=== PATIENT | female | born 1990 | race Caucasian/White ===

== ENCOUNTER 2018-02-06 17:09 | Emergency (ER) | payer MEDICAID, OTHER ==
[~2018-02-06] VITALS: Ht 162.6 cm; Wt 63.5 kg
[2018-02-06 17:17] VITALS: BP_SYST 120
[2018-02-06] MEDS ORDERED: LORazepam 2 MG/ML VIAL (FOR ER USE) IVP ONE ×2 (17:30→20:00)
[2018-02-06] MEDS ORDERED: NACL 0.9% 1,000 ML IV ONE (17:30)
[2018-02-06 17:54] LABS: BASOPHILS # (AUTO) 0.1 K/uL (0.0-0.2); BASOPHILS % (AUTO) 0.5 % (0.0-2.0); EOSINOPHILS % (AUTO) 0.1 % (0.0-4.0); HEMATOCRIT 43.7 % (36-48); HEMOGLOBIN 13.6 g/dL (12.0-16.0); LYMPHOCYTES # (AUTO) 0.6 K/uL (1.0-5.5); LYMPHOCYTES % (AUTO) 5.4 % (20.5-51.5); MEAN CORPUSCULAR HEMOGLOBIN 26 pg (27-31); MEAN CORPUSCULAR HGB CONC 31 % (32-36); MEAN CORPUSCULAR VOLUME 85 fL (79.0-98.0); MONOCYTES # (AUTO) 0.1 K/uL (0.0-1.0); MONOCYTES % (AUTO) 0.7 % (1.7-9.3); NEUTROPHILS # (AUTO) 9.7 K/uL (1.8-7.7); NEUTROPHILS % (AUTO) 93.3 % (40.0-70.0); PLATELET COUNT (AUTO) 290 K/uL (130-430); RED BLOOD CELL COUNT(AUTO) 5.14 MIL/uL (4.2-6.2); RED CELL DISTRIBUTION WIDTH 15.3 % (9.0-15.0); WHITE BLOOD COUNT (AUTO) 10.5 K/uL (4.8-10.8)
[2018-02-06 18:13] LABS: CALCIUM 9.8 mg/dL (8.4-11.0); CREATININE 0.64 mg/dL (0.55-1.30); POTASSIUM 4.5 mmol/L (3.5-5.1)
[2018-02-06 18:17] LABS: ALBUMIN 4.2 g/dL (3.4-4.8); TOTAL BILIRUBIN 0.6 mg/dL (0.0-1.0)
[2018-02-06] MEDS ORDERED: IBUPROFEN 800 MG TABLET PO ONE (19:15)
[2018-02-06 19:23] LABS: BILIRUBIN,URINE NEGATIVE (NEGATIVE); BLOOD, URINE NEGATIVE (NEGATIVE); CLARITY/URINE CLEAR (CLEAR); COLOR,URINE YELLOW (YELLOW); GLUCOSE,URINE TRACE (NEGATIVE); KETONES,URINE 1+ (NEGATIVE); LEUKOCYTE ESTERASE ,URINE NEGATIVE (NEGATIVE); NITRITE, URINE NEGATIVE (NEGATIVE); PH,URINE 5.5 (5.0-8.0); PROTEIN URINE NEGATIVE (NEGATIVE); UROBILINOGEN,URINE 0.2 (0.2-1.0)
[2018-02-06 22:25] VITALS: BP_SYST 118
== END 2018-02-06 22:25 | disposition home or self-care (01) ==
LOC: SED 17:09
DX: O99.341 Other mental disorders complicating pregnancy, first trimester (principal); O34.81 Maternal care for other abnormalities of pelvic organs, first trimester; F41.9 Anxiety disorder, unspecified; Z3A.01 Less than 8 weeks gestation of pregnancy
CPT/HCPCS: 36415; 76801; 76817; 80053; 81003; 83690; 84702; 85025; 86901; 96361; 96374; 96376; 99285; J2060; J7030

== ENCOUNTER 2018-03-10 11:41 | Emergency (ER) | payer MEDICAID ==
[~2018-03-10] VITALS: Ht 162.6 cm; Wt 61.2 kg
[2018-03-10 11:59] VITALS: BP_SYST 125
[2018-03-10] MEDS ORDERED: ONDANSETRON HCL 4 MG/2 ML VIAL IVP ONE (12:30)
[2018-03-10] MEDS ORDERED: fentaNYL CITRATE/PF 100 MCG/2 ML AMP IVP ONE (12:30)
[2018-03-10] MEDS ORDERED: NACL 0.9% 1,000 ML IV ONE (12:30)
[2018-03-10 12:44] LABS: BASOPHILS % (AUTO) 0.1 % (0.0-2.0); HEMATOCRIT 40.8 % (36-48); HEMOGLOBIN 13.3 g/dL (12.0-16.0); LYMPHOCYTES # (AUTO) 0.7 K/uL (1.0-5.5); LYMPHOCYTES % (AUTO) 6.1 % (20.5-51.5); MEAN CORPUSCULAR HEMOGLOBIN 28 pg (27-31); MEAN CORPUSCULAR HGB CONC 33 % (32-36); MEAN CORPUSCULAR VOLUME 85 fL (79.0-98.0); MONOCYTES # (AUTO) 0.2 K/uL (0.0-1.0); MONOCYTES % (AUTO) 1.9 % (1.7-9.3); NEUTROPHILS # (AUTO) 11.4 K/uL (1.8-7.7); NEUTROPHILS % (AUTO) 91.9 % (40.0-70.0); PLATELET COUNT (AUTO) 238 K/uL (130-430); RED BLOOD CELL COUNT(AUTO) 4.81 MIL/uL (4.2-6.2); RED CELL DISTRIBUTION WIDTH 12.1 % (9.0-15.0); WHITE BLOOD COUNT (AUTO) 12.3 K/uL (4.8-10.8)
[2018-03-10 13:01] LABS: CALCIUM 8.7 mg/dL (8.4-11.0); CREATININE 0.67 mg/dL (0.55-1.30); POTASSIUM 3.5 mmol/L (3.5-5.1)
[2018-03-10] MEDS ORDERED: PROCHLORPERAZINE EDISYLATE 10 MG/2 ML VIAL IVP ONE (14:00)
[2018-03-10 14:20] VITALS: BP_SYST 125
[2018-03-10 15:21] LABS: BARBITURATE, URINE NEGATIVE (NEG <=200)
[2018-03-10 15:22] LABS: BENZODIAZEPINE, URINE POSITIVE (NEG <=150); CANNABINOID, URINE POSITIVE (NEG <=50); COCAINE, URINE NEGATIVE (NEG <=150); METHAMPHETAMINES SCREEN,URINE NEGATIVE (NEG <=500); OPIATE, URINE POSITIVE (NEG <=100); PHENCYCLIDINE SCREEN,URINE NEGATIVE (NEG <=25); UR TRICYCLIC ANTIDEPRESSANTS NEGATIVE (NEG <=300); URINE AMPHETAMINE NEGATIVE (NEG <=500); URINE METHADONE NEGATIVE (NEG <=200); URINE OXYCODONE SCREEN NEGATIVE (NEG <=100); URINE PROPOXYPHENE SCREEN NEGATIVE (NEG <=300)
== END 2018-03-10 14:20 | disposition home or self-care (01) ==
LOC: SED 11:41
DX: O21.0 Mild hyperemesis gravidarum (principal); R03.0 Elevated blood-pressure reading, without diagnosis of hypertension; F41.9 Anxiety disorder, unspecified; Z90.49 Acquired absence of other specified parts of digestive tract; Z90.89 Acquired absence of other organs; Z3A.01 Less than 8 weeks gestation of pregnancy
CPT/HCPCS: 36415; 80048; 80307; 81025; 85025; 96361; 96374; 96375; 99283; J0780; J2405; J3010; J7030

== ENCOUNTER 2018-09-29 14:35 | Emergency (ER) | payer MEDICAID ==
[~2018-09-29] VITALS: Ht 162.6 cm; Wt 54.4 kg
[2018-09-29 14:40] VITALS: BP_SYST 112
--- NOTE | 2018-09-29 14:46 | NUR ---
Patient to ER bed 03 to gown for evaluation. Side rails up.
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
--- NOTE | 2018-09-29 15:05 | NUR ---
ER at bedside examining patient.
[2018-09-29] MEDS ORDERED: LIDOCAINE/EPI 2% 1:100000 20 ML VIAL INJ ONE (15:15)
--- NOTE | 2018-09-29 15:35 | NUR ---
REESE Rachel at bedside suturing patient.
[2018-09-29] MEDS ORDERED: DIPH-TET-PERTUS Vaccine 0.5 ML VIAL (ADACEL) I.M. ONE (16:00)
[2018-09-29] MEDS ORDERED: ACETAMINOPHEN 500 MG TABLET PO ONE (16:30)
[2018-09-29 16:49] VITALS: BP_SYST 112
--- NOTE | 2018-09-29 16:52 | NUR ---
Patient given written and verbal discharge instructions and verbalizes understanding. ER MD discussed with patient the results and treatment provided. Patient in stable condition. ID arm band removed. No Rx given. Patient educated on pain management and to follow up with PMD. Pain Scale 3/10 tolerable for patient. Opportunity for questions provided and answered. Medication side effect fact sheet provided.
== END 2018-09-29 16:45 | disposition home or self-care (01) ==
LOC: SED 14:35
DX: S01.81XA Laceration without foreign body of other part of head, initial encounter (principal); F41.9 Anxiety disorder, unspecified; W01.198A Fall on same level from slipping, tripping and stumbling with subsequent striking against other object, initial encounter; Y93.89 Activity, other specified; Y92.89 Other specified places as the place of occurrence of the external cause; Y99.8 Other external cause status
CPT/HCPCS: 90715; 99283

== ENCOUNTER 2019-04-21 22:00 | Emergency (ER) | payer MEDICAID ==
[~2019-04-21] VITALS: Ht 162.6 cm; Wt 56.7 kg
[2019-04-21 22:05] VITALS: BP_SYST 104
--- NOTE | 2019-04-21 22:05 | NUR ---
Patient triaged and placed in waiting room. VSS and patient appears in no acute distress at this time. Accompanied by BOY FRIEND, awaiting available bed, and MD notified of need for MSE.
--- NOTE | 2019-04-22 01:30 | NUR ---
Patient to ER bed 6 to gown for evaluation. Side rails up. Report given to Eve JENNINGS.
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
--- NOTE | 2019-04-22 01:50 | NUR ---
ER Dr. Brito at bedside examining patient.
[2019-04-22] MEDS ORDERED: CYCLOBENZAPRINE HCL 10 MG TABLET (FLEXERIL) PO ONE ×2 (02:30→04:15)
[2019-04-22] MEDS ORDERED: KETOROLAC TROMETHAMINE 60 MG/2 ML VIAL IM ONE (02:30)
--- NOTE | 2019-04-22 03:00 | NUR ---
Pt medicated per MD orders. Pt tolerated well. Will continue to monitor.
--- NOTE | 2019-04-22 04:10 | NUR ---
ER Dr. Brito at bedside explaining results to patient.
[2019-04-22] MEDS ORDERED: HYDROcodone/ACETAMIN 5-325 MG TAB (NORCO/ VICODIN) PO ONE (04:15)
[2019-04-22 04:30] VITALS: BP_SYST 108
--- NOTE | 2019-04-22 04:30 | NUR ---
Patient given written and verbal discharge instructions and verbalizes understanding. ER MD BRITO discussed with patient the results and treatment provided. Patient in stable condition. ID arm band removed. Rx of NAPROSYN AND FLEXERIL given. Patient educated on pain management and to follow up with PMD. Pain Scale 5/10. MD Brito aware of pain scale. Per MD, pt boyfriend in bed 3 as patient and will monitor pain. Opportunity for questions provided and answered. Medication side effect fact sheet provided.
--- NOTE | 2019-04-22 04:30 | NUR ---
Note undone in EDM - 04/22/19 at 0823 by KESHIA Patient given written and verbal discharge instructions and verbalizes understanding. ER MD Brito discussed with patient the results and treatment provided. Patient in stable condition. ID arm band removed. Rx of naprosyn and flexeril given. Patient educated on pain management and to follow up with PMD. Pain Scale /10. Opportunity for questions provided and answered. Medication side effect fact sheet provided.
== END 2019-04-22 04:30 | disposition home or self-care (01) ==
LOC: SED 22:00
DX: R07.89 Other chest pain (principal); G89.29 Other chronic pain; M54.5 Low back pain
CPT/HCPCS: 71045; 71100; 81025; 96372; 99283; J1885; 93005

== ENCOUNTER 2019-05-16 14:07 | Emergency (ER) | payer MEDICAID ==
[~2019-05-16] VITALS: Ht 162.6 cm; Wt 57.6 kg
[2019-05-16 14:13] VITALS: BP_SYST 124
--- NOTE | 2019-05-16 14:20 | NUR ---
Patient to ER bed 8 to gown for evaluation. Side rails up. Report given to MICHAELA Thomas.
--- NOTE | 2019-05-16 14:22 | NUR ---
Patient arrived in the ED c/o lower back pain that radiates down to the left leg that started 2 days ago. Denied any chest pain or shortness of breath. Denied any fevers, nausea, vomiting, or chills. Patient is alert and oriented x4, respirations even and unlabored, speaking in full sentences, ambulating with a steady gait. VSS, pain level 10/10. Informed of wait time. Instructed to notify ED staff for any changes in condition or worsening of symptoms. Patient verbalized understanding.
--- NOTE | 2019-05-16 14:26 | NUR ---
Patient ambulated to the bathroom with a steady gait. Urine specimen collected. Preg test done.
--- NOTE | 2019-05-16 14:29 | NUR ---
ER Dr. Jose at bedside examining patient.
[2019-05-16] MEDS ORDERED: fentaNYL CITRATE/PF 100 MCG/2 ML AMP IM ONE (14:45)
--- NOTE | 2019-05-16 14:56 | NUR ---
Administered Fentanyl IM as ordered by Dr. Jose. Patient tolerated the medication well. See eMAR for details.
[2019-05-16] MEDS ORDERED: HYDROcodone/ACETAMIN 5-325 MG TAB (NORCO/ VICODIN) PO ONE (16:00)
--- NOTE | 2019-05-16 16:05 | NUR ---
Administered Nakina 5/325 PO as ordered by Dr. Gann. Patient tolerated the medication well. See eMAR for details.
[2019-05-16 16:12] VITALS: BP_SYST 124
--- NOTE | 2019-05-16 16:15 | NUR ---
Patient given written and verbal discharge instructions and verbalizes understanding. ER MD discussed with patient the results and treatment provided. Patient in stable condition. ID arm band removed. Rx of Rombauer and Tramadol given. Patient educated on pain management and to follow up with PMD. Pain Scale 0/10. Opportunity for questions provided and answered. Medication side effect fact sheet provided.
== END 2019-05-16 16:12 | disposition home or self-care (01) ==
LOC: SED 14:07
DX: M54.5 Low back pain (principal); K58.9 Irritable bowel syndrome, unspecified; F41.9 Anxiety disorder, unspecified; Z90.49 Acquired absence of other specified parts of digestive tract
CPT/HCPCS: 72100; 81025; 96372; 99283; J3010

== ENCOUNTER 2019-06-01 19:57 | Emergency (ER) | payer MEDICAID ==
[~2019-06-01] VITALS: Ht 162.6 cm; Wt 57.6 kg
[2019-06-01 20:25] VITALS: BP_SYST 117
--- NOTE | 2019-06-01 20:25 | NUR ---
Patient to ER bed 08 to gown for evaluation. Side rails up.
--- NOTE | 2019-06-01 20:30 | NUR ---
Patient brought in complaining of lower back pain radiating down left leg worsening x 2 weeks. Pain 10/10, throbbing spasm. Patient reports that she was seen at [facility] and prescribed SOMA and [place]. No other complaints/injuries per patient or as noted. Will continue to monitor.
--- NOTE | 2019-06-01 20:42 | NUR ---
ER Dr. Zavala at bedside examining patient.
[2019-06-01] MEDS ORDERED: KETOROLAC TROMETHAMINE 30 MG VIAL IM ONE (20:45)
[2019-06-01] MEDS ORDERED: DIAZEPAM 5 MG TABLET (VALIUM) PO ONE (20:45)
--- NOTE | 2019-06-01 21:10 | NUR ---
Patient refusing Toradol at this time. Requesting a stronger medication. MD notified.
[2019-06-01 21:30] VITALS: BP_SYST 132
--- NOTE | 2019-06-01 21:30 | NUR ---
Patient given written and verbal discharge instructions and verbalizes understanding. ER Dr. Zavala discussed with patient the results and treatment provided. Patient in stable condition. ID arm band removed. Rx of Caruthers, Lidoderm, and Naprosyn given. Patient educated on pain management and to follow up with PMD. Pain Scale 5/10. Patient will hand picker prescribed medication. Opportunity for questions provided and answered. Medication side effect fact sheet provided.
== END 2019-06-01 21:30 | disposition home or self-care (01) ==
LOC: SED 19:57
DX: G89.29 Other chronic pain (principal); M54.5 Low back pain; F41.9 Anxiety disorder, unspecified; Z87.891 Personal history of nicotine dependence; Z90.49 Acquired absence of other specified parts of digestive tract
CPT/HCPCS: 72131; 81002; 81025; 99284; J1885

== ENCOUNTER 2019-09-04 10:09 | Emergency (ER) | payer MEDICAID, OTHER ==
[~2019-09-04] VITALS: Ht 154.9 cm; Wt 59.0 kg
--- NOTE | 2019-09-04 10:17 | NUR ---
Patient refusing triage until she gets her phone. Dr. Ritter made aware.
--- NOTE | 2019-09-04 10:24 | NUR ---
Patient to ER bed 4 to gown for evaluation. Side rails up.
[2019-09-04 10:38] VITALS: BP_SYST 101
--- NOTE | 2019-09-04 10:50 | NUR ---
Patient ambulated to nursing station. Had to be instructed several times and finally escorted by RN to her bed.
[2019-09-04] MEDS ORDERED: LORazepam 1 MG TABLET PO ONE (11:00)
[2019-09-04] MEDS ORDERED: KETOROLAC TROMETHAMINE 30 MG VIAL IM ONE (11:00)
--- NOTE | 2019-09-04 11:02 | NUR ---
pt continues to removes heart monitor and BP cuff. Constant redirection.
--- NOTE | 2019-09-04 11:08 | NUR ---
medicated the pt w/ Toradol IM and Ativan PO per MD order. Will reassess
--- NOTE | 2019-09-04 11:09 | NUR ---
pt getting x-rays at the bedside
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
--- NOTE | 2019-09-04 12:06 | NUR ---
Patient given written and verbal discharge instructions and verbalizes understanding. ER MD discussed with patient the results and treatment provided. Patient in stable condition. ID arm band removed. Rx of IBU given. Patient educated on pain management and to follow up with PMD. Pain Scale 4/10 Opportunity for questions provided and answered. Medication side effect fact sheet provided.
[2019-09-04 12:07] VITALS: BP_SYST 102
== END 2019-09-04 12:07 | disposition home or self-care (01) ==
LOC: SED 10:09
DX: M25.532 Pain in left wrist (principal); F41.9 Anxiety disorder, unspecified; Y04.0XXA Assault by unarmed brawl or fight, initial encounter; Y93.89 Activity, other specified; Y92.89 Other specified places as the place of occurrence of the external cause; Y99.8 Other external cause status
CPT/HCPCS: 73110; 96372; 99283; J1885

== ENCOUNTER 2020-06-04 18:06 | Emergency (ER) | payer MEDICAID ==
[~2020-06-04] VITALS: Ht 162.6 cm; Wt 77.1 kg
[2020-06-04 18:11] VITALS: BP_SYST 155
[2020-06-04] MEDS ORDERED: HYDROcodone/ACETAMIN 5-325 MG TAB (NORCO/ VICODIN) ONE (18:24)
[2020-06-04] MEDS ORDERED: HYDROcodone/ACETAMIN 5-325 MG TAB (NORCO/ VICODIN) PO ONE (18:30)
[2020-06-04 18:58] LABS: BILIRUBIN,URINE NEGATIVE (NEGATIVE); BLOOD, URINE 2+ (NEGATIVE); CLARITY/URINE CLEAR (CLEAR); COLOR,URINE YELLOW (YELLOW); GLUCOSE,URINE NEGATIVE (NEGATIVE); KETONES,URINE NEGATIVE (NEGATIVE); LEUKOCYTE ESTERASE ,URINE NEGATIVE (NEGATIVE); NITRITE, URINE NEGATIVE (NEGATIVE); PROTEIN URINE NEGATIVE (NEGATIVE); UROBILINOGEN,URINE 0.2 (0.2-1.0)
[2020-06-04] MEDS ORDERED: CYCL-10 PO (19:23)
[2020-06-04 19:31] LABS: BACTERIA,URINE FEW /HPF (None Seen); WBC,URINE 0-3 /HPF (0-3)
[2020-06-04 19:37] VITALS: BP_SYST 142
== END 2020-06-04 19:37 | disposition home or self-care (01) ==
LOC: SED 18:06
DX: M54.5 Low back pain (principal); F41.9 Anxiety disorder, unspecified
CPT/HCPCS: 81000-TC; 81025; 99283

== ENCOUNTER 2020-09-09 16:50 | Emergency (ER) | payer MEDICAID ==
[~2020-09-09] VITALS: Ht 162.6 cm; Wt 72.6 kg
[~2020-09-09 16:50] MED LIST: CYCL-10 PO
[2020-09-09 17:02] VITALS: BP_SYST 131
[2020-09-09] MEDS ORDERED: ONDANSETRON HCL 4 MG/2 ML VIAL IVP ONE (18:15)
[2020-09-09] MEDS ORDERED: DIPHENHYDRAMINE INJ 50 MG/ML VIAL IVP ONE (18:15)
[2020-09-09] MEDS ORDERED: NACL 0.9% 1,000 ML IV ONE (18:15)
[2020-09-09] MEDS ORDERED: MORPHINE 2 MG/ML INJ. SYRINGE IVP ONE (18:15)
[2020-09-09 18:19] LABS: CALCIUM 8.9 mg/dL (8.4-11.0); CREATININE 0.7 mg/dL (0.55-1.30); POTASSIUM 3.9 mmol/L (3.5-5.1)
[2020-09-09 18:25] LABS: ALBUMIN 3.6 g/dL (3.4-4.8); TOTAL BILIRUBIN 0.2 mg/dL (0.0-1.0)
[2020-09-09 18:34] LABS: BILIRUBIN,URINE NEGATIVE (NEGATIVE); BLOOD, URINE NEGATIVE (NEGATIVE); COLOR,URINE YELLOW (YELLOW); GLUCOSE,URINE NEGATIVE (NEGATIVE); KETONES,URINE NEGATIVE (NEGATIVE); LEUKOCYTE ESTERASE ,URINE NEGATIVE (NEGATIVE); NITRITE, URINE NEGATIVE (NEGATIVE); PROTEIN URINE NEGATIVE (NEGATIVE); UROBILINOGEN,URINE 0.2 (0.2-1.0)
[2020-09-09 18:35] LABS: BASOPHILS % (AUTO) 0.5 % (0.0-2.0); EOSINOPHILS % (AUTO) 0.5 % (0.0-4.0); HEMATOCRIT 39.6 % (36-48); HEMOGLOBIN 12.9 g/dL (12.0-16.0); LYMPHOCYTES # (AUTO) 2.2 K/uL (1.0-5.5); LYMPHOCYTES % (AUTO) 25.3 % (20.5-51.5); MEAN CORPUSCULAR HEMOGLOBIN 26 pg (27-31); MEAN CORPUSCULAR HGB CONC 33 % (32-36); MEAN CORPUSCULAR VOLUME 81 fL (79.0-98.0); MONOCYTES # (AUTO) 0.4 K/uL (0.0-1.0); MONOCYTES % (AUTO) 4.7 % (1.7-9.3); NEUTROPHILS # (AUTO) 6.1 K/uL (1.8-7.7); PLATELET COUNT (AUTO) 281 K/uL (130-430); RED BLOOD CELL COUNT(AUTO) 4.91 MIL/uL (4.2-6.2); RED CELL DISTRIBUTION WIDTH 14.8 % (9.0-15.0); WHITE BLOOD COUNT (AUTO) 8.9 K/uL (4.8-10.8)
[2020-09-09 18:41] LABS: CLARITY/URINE SLIGHTLY HAZY (CLEAR)
[2020-09-09 18:47] LABS: BARBITURATE, URINE NEGATIVE (NEG <=200); BENZODIAZEPINE, URINE POSITIVE (NEG <=150); CANNABINOID, URINE NEGATIVE (NEG <=50); COCAINE, URINE NEGATIVE (NEG <=150); METHAMPHETAMINES SCREEN,URINE NEGATIVE (NEG <=500); OPIATE, URINE NEGATIVE (NEG <=100); PHENCYCLIDINE SCREEN,URINE NEGATIVE (NEG <=25); UR TRICYCLIC ANTIDEPRESSANTS POSITIVE (NEG <=300); URINE AMPHETAMINE NEGATIVE (NEG <=500); URINE METHADONE NEGATIVE (NEG <=200); URINE OXYCODONE SCREEN NEGATIVE (NEG <=100); URINE PROPOXYPHENE SCREEN NEGATIVE (NEG <=300)
[2020-09-09] MEDS ORDERED: MORPHINE 4 MG INJ. 4 MG/ML VIAL IVP ONE (19:45)
[2020-09-09] MEDS ORDERED: LORazepam 2 MG/ML VIAL IVP ONE (20:45)
[2020-09-09] MEDS ORDERED: TRAM50TA PO (21:41)
[2020-09-09] MEDS ORDERED: METR500T PO (21:44)
[2020-09-09] MEDS ORDERED: CIPR250T4 PO (21:44)
[2020-09-09] MEDS ORDERED: HYDROcodone/ACETAMIN 7.5-325 MG TAB PO ONE (21:45)
[2020-09-09 22:03] VITALS: BP_SYST 127
[2020-09-09] MEDS ORDERED: IBUP-1970 PO (22:03)
== END 2020-09-09 22:03 | disposition home or self-care (01) ==
LOC: SED 16:50
DX: R10.32 Left lower quadrant pain (principal); R19.7 Diarrhea, unspecified; R11.0 Nausea; Z79.899 Other long term (current) drug therapy
CPT/HCPCS: 36415; 74176; 76376; 80053; 80307; 81003; 82272; 83605; 85025; 87040; 96361; 96374; 96375; 96376; 99284; J1200; J2060; J2270 ×2; J2405; J7030